=== PATIENT | female | born 1990 | race Caucasian/White ===

== ENCOUNTER 2017-05-01 11:24 | Emergency (ER) | payer BC ==
[~2017-05-01] VITALS: Ht 160 cm; Wt 61.0 kg
[2017-05-01 11:27] VITALS: Ht 160 cm; Wt 61.0 kg
[2017-05-01] MEDS ORDERED: ACETAMINOPHEN 500 MG TAB PO STA (12:55)
[2017-05-01 12:57] LABS: URINE BLOOD (Dip) POC 1+ (NEGATIVE)
[2017-05-01] MEDS ORDERED: CEPH-443 PO (13:26)
[2017-05-01] MEDS ORDERED: IBUP-1542 PO (13:26)
[2017-05-01] MEDS ORDERED: ACYC800T57 PO (13:26)
--- NOTE | 2017-05-01 13:42 | ERD ---
ER Documentation Chief Complaint Date/Time DATE: 05/01/17 TIME: 13:35 Chief Complaint abcess on vaginal area x 3 days with fever , chills , burning urination HPI This is a 26-year-old female presents to the ER stating that she had a cut on her anus last Monday. On Monday patient went to an urgent care and was given Bactrim. Patient states that she had developed fevers on Monday and that is why she decided to go to the urgent care. Patient is now complaining of vaginal pimples that are painful. Patient complains of dysuria and also complains of pain with bowel movements. She states that she noticed "pus" from her anus and brown vaginal discharge. Her last normal menstrual period was last Monday. Patient denies any pelvic pain. She denies any back pain. Patient denies any abdominal pain. Patient is currently sexually active with her boyfriend and does not use condoms. Patient states she is in a monogamous relationship. ROS 12 point review of systems was done, all negative except per HPI. Medications Home Meds Active Scripts Ibuprofen* (Motrin*) 600 Mg Tab, 600 MG PO Q6, #30 TAB Prov:XAVIDANTE C 05/01/17 Cephalexin* (Keflex*) 500 Mg Capsule, 500 MG PO BID for 7 Days, CAP Prov:XAVI,DANTE C 05/01/17 Acyclovir* (Zovirax*) 800 Mg Tablet, 800 MG PO 5 TIMES DAILY for 7 Days, TAB Prov:XAVI,DANTE C 05/01/17 PMhx/Soc History of Surgery: No Anesthesia Reaction: No Hx Neurological Disorder: No Hx Respiratory Disorders: No Hx Cardiac Disorders: No Hx Psychiatric Problems: No Hx Miscellaneous Medical Probl: No Hx Alcohol Use: No Hx Substance Use: No Hx Tobacco Use: No Smoking Status: Never smoker Physical Exam Vitals Vital Signs Date Time Temp Pulse Resp B/P Pulse Ox O2 Delivery O2 Flow Rate FiO2 05/01/17 11:27 101.3 104 18 119/56 99 Physical Exam GENERAL: The patient is well developed and appropriate for usual state of health , in no apparent distress. HEENT: Atraumatic. Conjunctivae are pink. Pupils equal, round, and reactive to light. Extraocular muscles are grossly intact. Bilateral tympanic membranes are clear with no evidence of erythema, effusion or dulling of the light reflex. The oropharynx is clear with no erythema or exudates. NECK: C-spine is soft and supple. There is no cervical lymphadenopathy. CHEST: Clear to auscultation bilaterally. There are no rales, wheezes or rhonchi. HEART: Regular rate and rhythm. No murmurs, clicks, rubs or gallops. ABDOMEN: Soft, nontender and nondistended. Good bowel sounds. No rebound or guarding. No gross peritonitis. No gross organomegaly or masses. No Mckay sign or McBurney point tenderness. BACK: No midline or flank tenderness. : vesicular lesions on labia majora, labia minora, and in anus. there is surrounding erythema around sores on anus. no abscess is felt. NEURO: Alert and oriented. Results 24 hrs Laboratory Tests Test 05/01/17 13:01 Bedside Urine pH (LAB) 5.5 Bedside Urine Protein (LAB) Negative Bedside Urine Glucose (UA) Negative Bedside Urine Ketones (LAB) Negative Bedside Urine Blood 1+ Bedside Urine Nitrite (LAB) Negative Bedside Urine Leukocyte Esterase (L 3+ Current Medications Medications (Trade) Dose Ordered Sig/Roderick Route PRN Reason Start Time Stop Time Status Last Admin Dose Admin Acetaminophen (Tylenol Tab) 1,000 mg ONCE STAT PO 05/01/17 12:55 05/01/17 12:56 DC Procedures/MDM This patient was examined by myself and by my supervising physician Dr. Burnette. Patient does have a significant herpes outbreak. This is likely patient's first outbreak and she is febrile and is having constitutional symptoms. Herpes outbreak is likely the cause of patient's fever. Suspicion for abscess is low as physical examination is benign other than herpes. Patient also has a urinary tract infection she will be treated with Keflex. Patient will be sent home with acyclovir. Follow-up with her primary care doctor within 1-2 days or return to ER sooner if symptoms worsen. My medical decision making was shared with the patient she understands and agrees with plan. Departure Diagnosis: Primary Impression: Genital herpes Additional Impression: UTI (urinary tract infection) Condition: Stable Patient Instructions: Herpes Genitalis, Hsv: Type Ii DANTE HURLEY May 01, 2017 13:41
== END 2017-05-01 13:37 | disposition home or self-care (01) ==
LOC: FTE 11:24
DX: A60.09 Herpesviral infection of other urogenital tract (principal); N39.0 Urinary tract infection, site not specified
CPT/HCPCS: 81003; 99284